=== PATIENT | female | born 1955 | race Two or more races ===

== ENCOUNTER 2016-12-26 05:48 | Emergency (ER) | payer MEDICAID ==
[2016-12-26] MEDS ORDERED: Sodium Chloride 0.9% 1,000 ML IV ONE (06:45)
[2016-12-26] MEDS ORDERED: HYDROmorphone 1 mg/mL 1mL Syr IVP STA (06:47)
--- NOTE | 2016-12-26 06:53 | ED Physician Chart ---
Chief Complaint/HPI - Patient Information Date Seen:: 12/26/16 Time Seen:: 06:30 Chief Complaint:: headache History of Present Illness:: 2 days ago this patient had gradual onset of diffuse cephalgia, eye pain and diffuse myalgia. Patient vomited twice 2 days ago but has not vomited since. She has mild abdominal pain also. She has had a subjective fever. This is her worst headache ever. Allergies:: Allergies Allergy/AdvReac Type Severity Reaction Status Date / Time No Known Allergies Allergy Verified 12/26/16 06:03 Vitals:: Vital Signs - 8 hr 12/26/16 05:50 Temp 99.9 F HR 77 RR 18 BP 132/66 O2 Sat % 98 <Aldo Tolbert - Last Filed: 12/26/16 06:48> - Patient Information Allergies:: Allergies Allergy/AdvReac Type Severity Reaction Status Date / Time No Known Allergies Allergy Verified 12/26/16 06:03 Vitals:: Vital Signs - 8 hr 12/26/16 12/26/16 05:50 07:05 Temp 99.9 F HR 77 63 RR 18 20 BP 132/66 125/66 O2 Sat % 98 99 <Abdifatah Benson - Last Filed: 12/26/16 11:05> Review of Systems - Review of Systems General/Constitutional: Fever Skin: No skin lesions Head: Headache Eyes: Pain Neck: No neck pain Cardio Vascular: No chest pain Pulmonary: No SOB GI: Pain G/U: No dysuria Musculoskeletal: No bone or joint pain Endocrine: No polyuria, Polydipsia Psychiatric: No prior psych history Hematopoietic: No bruising, No lymphadenopathy Allergic/Immuno: No urticaria Neurological: No syncope <Aldo Tolbert - Last Filed: 12/26/16 06:48> Past Medical History - Past Medical History Past Medical History: No significant medical hx Family History: Heart disease Social History: Non Smoker, Alcohol, Other (occasional alcohol only) Surgical History: other (right small finger for fracture (finger still bandaged) ; section; tonsillectomy; laparotomy) Psychiatricy History: None Medication: None <Aldo Tolbert - Last Filed: 12/26/16 06:48> Family Medical History - Family Member Mother History Unknown: Yes <Aldo Tolbert - Last Filed: 12/26/16 06:48> Physical Exam - Physical Examination General/Constitutional: Well-developed, well-nourished, Alert Other Gen/Cons comments:: Mild distress; appears not to be able to find a comfortable position on the gurney Head: Atraumatic Eyes: Lids, conjuctiva normal, PERRL, EOMI Other Eyes comments:: Minimal vertical nystagmus; no horizontal or rotatory nystagmus; both optic discs are sharp Skin: Nl inspection, No rash ENMT: External ears, nose nl, TM canals nl, Nasal exam nl, Lips, teeth, gums nl , Oropharynx nl, Tonsils nl Neck: No nuchal rigidity Other Neck comments:: 90 forward flexion of her neck Respiratory: Nl effort/Exclusion, Clear to Auscultation, No Wheeze/Rhonchi/Rales Cardio Vascular: RRR, No murmur, gallop, rubs, NL S1 S2 GI: No tenderness/rebounding/guarding, No organomegaly, No hernia, Normal BS's, Nondistended Extremities: Normal digits & nails Neuro/Psych: Alert/oriented, No focal deficits Other Neuro/Psych comments:: Strong equal hand grasp; finger to nose and heel to smith testing intact <Aldo Tolbert - Last Filed: 12/26/16 06:48> Labs/Radiology/EKG Results - Lab Results Results: Laboratory Tests 12/26/16 06:56 ESR 48 H <Abdifatah Benson - Last Filed: 12/26/16 11:05> Assessment - Assessment General Assessment: Signed out to Dr. Benson at 700 <Aldo Tolbert - Last Filed: 12/26/16 06:48> - Assessment General Assessment: 0720: Above per Dr. Tolbert. Pt. presents with 2 days AVILA, gradual onset, intermittent. Not febrile. Neck is supple. No significant past medical hx. Pt. now better after analgesia. Pt. also getting NS, wide open. Past Hx: Pt has fx R 5th finger with recent insertion of janay. Meds: Citalopram, Ibuprofen, Oxycodone-acetamenophen, tramadol Pt. alert, conversant and feeling better. HEENT: PERRL. EOMI. Well-hydrated. Fundi benign, discs sharp Neck: Supple Chest: Clr. Heart: RRR without obvious m or g Abd.: Soft Ext.: No ECC Neuro: intact. Alert and oriented. No motor deficit. More comfortable. Sed rate is 48, elevated. K = 3.0 CBC shows nl. WBC and nl. H/H. BUN/creat = 9/0.7 Glucose = 165. Pt. is CT ordered by Dr. Tolbert. UA shows moderate blood, protien. RBC 2 - 5, WBC 2 - 5. Pt. has had fluids & analgesia. Feels well. CT per rad.: "No actue intracranial abnormality" Discussed results with pt.. She feels well. She has acetamenophen-oxycodone at home and does not think she requires more anagesics at this time. Pt. has friend here to take her home. <Abdifatah Benson - Last Filed: 12/26/16 11:05> ED Septic Shock - <6hrs of presentation: Vital Signs: Vital Signs - 8 hr 12/26/16 05:50 Temp 99.9 F HR 77 RR 18 BP 132/66 O2 Sat % 98 <Aldo Tolbert - Last Filed: 12/26/16 06:48> - . Is Septic Shock (SBP<90, OR Lactate>4 mmol\\L) present?: No - <6hrs of presentation: Vital Signs: Vital Signs - 8 hr 12/26/16 12/26/16 05:50 07:05 Temp 99.9 F HR 77 63 RR 18 20 BP 132/66 125/66 O2 Sat % 98 99 <Abdifatah Benson - Last Filed: 12/26/16 11:05> Reassessment (Disposition) - Reassessment Reassessment Condition:: Improved - Diagnosis Diagnosis:: Dx: Acute headache. - Aftercare/Follow up Instructions Aftercare/Follow-Up Instructions:: Counseled pt & family regarding lab results/ diagnosis & need follow up Notes:: Follow-up with your on Thursday (3 days) as scheduled. No driving. You may take your acetamenophen-oxycodone. - Patient Disposition Discharge/Transfer:: Home Condition at Disposition:: Stable <Abdifatah Benson - Last Filed: 12/26/16 11:05> ED Discharge Plan <Aldo Tolbert - Last Filed: 12/26/16 06:48> <Abdifatah Benson. - Last Filed: 12/26/16 11:05> - Patient Disposition Admit/Discharge/Transfer: PT DISCHARGED HOME Instructions: Tension Headache
[2016-12-26] MEDS ORDERED: HYDROmorphone 1 mg/mL 1mL Syr ONE (06:59)
[2016-12-26 07:19] LABS: ANION GAP 10.3 (7.0-16.0); BUN - UREA NITROGEN 9 mg/dL (7-25); BUN/CREATININE RATIO 12.9; CALCIUM SERUM 9.6 mg/dL (8.6-10.3); CARBON DIOXIDE 24.7 mEq/L (21.0-31.0); CHLORIDE 102 mEq/L (98-107); CREATININE - SERUM 0.7 mg/dL (0.6-1.2); GLUCOSE 165 mg/dL (70-105); SODIUM SERUM 134 mEq/L (136-145)
[2016-12-26 07:26] LABS: WHITE BLOOD COUNT 9.3 Th/cmm (4.8-10.8)
[2016-12-26 07:29] LABS: % BASOPHILS 0.7 % (0.0-2.0); % EOSINOPHILS 0.3 % (0.0-5.0); % LYMPHOCYTES 5.1 % (20.0-50.0); % MONOCYTES 9.4 % (2.0-10.0); % NEUTROPHILS 84.5 % (40.0-80.0); HEMATOCRIT 37.6 % (35.0-45.0); MEAN CELL VOLUME 95.1 fl (81-100); MEAN CORPUSCULAR HEMOGLOBIN 32.9 pg (27.0-31.0); MEAN CORPUSCULAR HGB CONC 34.6 pg (28.0-36.0); MEAN PLATELET VOLUME 7.4 fl; NEUTROPHILE ABSOLUTE 7.8 Th/cmm (1.8-8.0); PLATELET COUNT 126 Th/cmm (150-400); RED BLOOD COUNT 3.95 Mil/cmm (3.80-5.10); RED CELL DISTRIBUTION WIDTH 10.9 % (11.5-20.0)
[2016-12-26 08:04] LABS: URINE BILIRUBIN NEGATIVE (NEGATIVE); URINE COLOR YELLOW; URINE GLUCOSE (UA) NEGATIVE (NEGATIVE)
[2016-12-26 08:05] LABS: URINE BLOOD MODERATE (NEGATIVE); URINE EPITHELIAL CELLS FEW /lpf (FEW); URINE KETONE >=80 mg/dL (NEGATIVE); URINE PH 6.5; URINE PROTEIN >300 mg/dL (NEGATIVE)
[2016-12-26 08:06] LABS: URINE BACTERIA FEW /hpf (NONE SEEN)
[2016-12-26] MEDS ORDERED: Potassium Chloride 20 mEq ER Tab PO ONE ×2 (08:47→10:40)
--- NOTE | 2016-12-26 09:30 | Diagnostic Imaging Report ---
Head CT without intravenous contrast Indication: Headache Comparison: None Technique: Axial images were obtained from the vertex to the skull base without IV contrast. Coronal reconstructions were made. Total DLP: 559, CTDI31.7 FINDINGS: Images of the brain obtained without contrast demonstrate no acute hemorrhage. No mass lesions identified. The ventricles and basal cisterns are patent. The rae-white matter differentiation is preserved. There is no mass effect or midline shift. No skull fractures identified. No soft tissue swelling. The paranasal sinuses are clear. IMPRESSION: No acute intracranial abnormality.
== END 2016-12-26 11:00 | disposition home or self-care (01) ==
LOC: ER 05:48
DX: R51 Headache (principal); R50.9 Fever, unspecified; H92.09 Otalgia, unspecified ear; M79.1 Myalgia; R10.9 Unspecified abdominal pain
CPT/HCPCS: 36415-UA; 70450-TC; 80048-TC; 81001-TC; 85025-TC; 85652-TC; 96374; J1170; J7030